=== PATIENT | male | born 1975 | race Caucasian/White ===

== ENCOUNTER → 2016-07-11 | Day surgery (SDC) | payer MEDICARE, MEDICAID ==
[~2016-07-11] VITALS: Ht 175.3 cm; Wt 98.0 kg
[~2016-07-11] MED LIST: AMLO10TA2 PO; CETACAINE SPRAY 20GM (FLOOR STOCK) As Ordered ONE; GLUCAGON FOR INJ 1 MG VIAL (J1610) IV STA; IBUP600T26 PO; IBUP800T23 PO; LEVO150T7 PO; LIDOCAINE 2% INJ 100 MG/5 ML SDV (FOR ANES.) As Ordered ONE; LR 1,000 ML IV SCH; OMEP40CA2 PO; ONDANSETRON 4MG/2ML VIAL (J2405) As Ordered ONE; ONDANSETRON 4MG/2ML VIAL (J2405) IV PRN; PENI250T57 PO; PROPOFOL 200 MG/20 ML VIAL As Ordered ONE; ROCURONIUM BROMIDE 50 MG/5 ML VIAL As Ordered ONE; SUCCINYLCHOLINE 100 MG/5 ML SYRINGE (J0330) As Ordered ONE; fentaNYL 100 MCG/2 ML INJECTION (J3010) As Ordered ONE
[2016-07-11 21:08] VITALS: BP 174/88
--- NOTE | 2016-07-11 23:10 | HPE ---
DATE OF ADMISSION: 07/11/2016 CHIEF COMPLAINT: Food impaction. HISTORY OF PRESENT ILLNESS: The patient is a 41-year-old male who presents with complaint of having food stuck in his throat. He has had this three times in the past. Most recently was about a year and a half ago where he required esophagogastroduodenoscopy (EGD) to push the food into his stomach. He saw Dr. Estevez after that and he said as long as it did not happen again, they would not do anything but if it did happen again he would have to have dilation done. Over the past year and a half he has had a couple episodes where the food has gotten stuck, but has gone through on its own. He has not had any more imaging or procedures done since then. Currently he is on proton pump inhibitor (PPI) which does take care of his symptoms. He has no problems with acid reflux, heartburn. No problems with swallowing liquids and normally does not have any problems with solids either. This afternoon his friend brought him a sub from [facility]. Shortly after eating he felt some fullness in his stomach and he tried passing it down by drinking some Dr. Gilbert. He vomited a couple of times, brought up a little bit of food but he is still unable to hold any liquids down. PAST MEDICAL HISTORY: Thyroid disease. History of lymphoma. Hypertension. PAST SURGICAL HISTORY: Splenectomy . Bone marrow biopsy. Para and total thyroidectomy. Lymph node dissections. SOCIAL HISTORY: Denies drug, alcohol, tobacco abuse. FAMILY HISTORY: Noncontributory. ALLERGIES: None. HOME MEDICATIONS: Please see medical records. REVIEW OF SYSTEMS: Per positives and negatives as stated in HPI. PHYSICAL EXAMINATION: General: A and O times three. In no acute distress. Vital signs: Temperature 97.6, pulse 88, respirations 18, blood pressure 174/105, pulse oximetry 99% on room air. HEENT: Pupils equal round, react to light and accommodation. Heart: S1, S2, regular rate and rn. Lungs: Clear to auscultation bilaterally. Abdomen: Soft, nontender, nondistended. Bowel sounds positive. Extremities: No clubbing, cyanosis or edema. LABS: None were obtained. IMAGING STUDIES: None were obtained. ASSESSMENT/PLAN: The patient is a 41-year-old male with likely food stuck in his throat. Recommendations to proceed with EGD with removal of food bolus or other foreign bodies. The risks and benefits of the procedure not limited but including bleeding, infection and perforation were discussed in detail with the patient. Informed was obtained and the procedure was planned. Postoperatively he will be discharged home and can followup with the Dr. Estevez in the office to discuss balloon dilation in the near future.
--- NOTE | 2016-07-12 10:50 | RO ---
DATE OF PROCEDURE: 07/14/2016 PREOPERATIVE DIAGNOSIS: Esophageal food impaction, possible foreign body. POSTOPERATIVE DIAGNOSIS: Esophageal food impaction, possible foreign body. FINDINGS: Distal esophagitis. No retained food. PROCEDURE: EGD, diagnostic. SURGEON: Dr. Jaciel Diaz. GROCERY STOCKER: ESTIMATED BLOOD LOSS: None. COMPLICATIONS: None. ANESTHESIA: General. INDICATIONS FOR PROCEDURE: The patient is a 41-year-old male with a history of food stuck in his throat after eating a sub this afternoon. He was unable to pass it. He was having difficulty swallowing his spit in the ER. Recommendation was to proceed with EGD and removal of the food. Risks and benefits of the procedure not limited but including bleeding, infection and perforation were discussed in detail with patient and informed consent was obtained and procedure was planned. PROCEDURE: The patient was brought back to operating room two. After sufficient sedation, the patient was placed in left lateral decubitus position. Next, time-out was done to confirm proper patient and proper procedure. Following that, a gastroscope was passed through the esophagus into the stomach. There is no obstruction along the way. There is slight narrowing at the distal esophagus with some inflammation. No visible bleeding. No visible food. Scope was then passed easily through the stomach into the duodenum. The first portion of the duodenal bulb, there was a large piece of lettuce that may have been what was causing the problems. Other than that, there was no sign of any other foreign material. Scope was then slowly removed and the patient with awakened from anesthesia and sent to postanesthesia care unit in stable condition.
== END | disposition home or self-care (01) ==
LOC: M ED 16:27 → M SDC 18:00
PROVIDERS: ATTEND Surgery
DX: T17.328A Food in larynx causing other injury, initial encounter (principal); I10 Essential (primary) hypertension; Z85.79 Personal history of other malignant neoplasms of lymphoid, hematopoietic and related tissues; E03.9 Hypothyroidism, unspecified; Z79.899 Other long term (current) drug therapy; Y92.89 Other specified places as the place of occurrence of the external cause
CPT/HCPCS: 43235; 99284; J0330; J1610; J2405; J3010

== ENCOUNTER → 2017-02-21 | Outpatient (CLI) | payer MEDICARE, MEDICAID ==
[~2017-02-21] MED LIST changes: -CETACAINE SPRAY 20GM (FLOOR STOCK) As Ordered ONE; -GLUCAGON FOR INJ 1 MG VIAL (J1610) IV STA; +IBUP-1022 PO; +IBUP1TAB7 PO; -IBUP600T26 PO; -IBUP800T23 PO; -LIDOCAINE 2% INJ 100 MG/5 ML SDV (FOR ANES.) As Ordered ONE; -LR 1,000 ML IV SCH; +METHACHOLINE KIT (J7674) INH ONE; -ONDANSETRON 4MG/2ML VIAL (J2405) As Ordered ONE; -ONDANSETRON 4MG/2ML VIAL (J2405) IV PRN; -PROPOFOL 200 MG/20 ML VIAL As Ordered ONE; -ROCURONIUM BROMIDE 50 MG/5 ML VIAL As Ordered ONE; -SUCCINYLCHOLINE 100 MG/5 ML SYRINGE (J0330) As Ordered ONE; -fentaNYL 100 MCG/2 ML INJECTION (J3010) As Ordered ONE
--- NOTE | 2017-02-21 14:36 | PFTRPT ---
Tech: Annetta RICE RRT Age: 41 Sex: Male Race: Height: 68.00 Inches Weight: 216.00 Lbs BSA: 2.11 Diagnosis: R06.09 METHACHOLINE CHALLENGE REPORT ORDERING PROVIDER: PHANI Sutton DATE OF SERVICE: 02/21/17 INTERPRETATION: The study was of excellent technical quality. Under protocol, methacholine was administered. At a dose of 25 mg (188.875 CDUs), a 21% decline in the FEV1 was noted. A PC20 of 18.40 does not meet criteria for a positive study. Flow rates returned to baseline post bronchodilator administration. IMPRESSION: Non-diagnostic study. Please correlate clinically. MTDD
--- NOTE | 2017-02-21 14:37 | PFTRPT ---
Tech: Annetta RICE RRT Age: 41 Sex: Male Race: Height: 68.00 Inches Weight: 216.00 Lbs BSA: 2.11 Diagnosis: R06.09 PULMONARY FUNCTION TESTING ORDERING PROVIDER: PHANI Sutton DATE OF SERVICE: 02/21/17 SPIROMETRY: Excellent technical quality. The forced vital capacity is reduced. The flow volume loop is in proportion. The obstructive index is, therefore, normal. FLOW VOLUME LOOP: The expiratory limb of the flow volume loop does suggest flow rate limitation. LUNG VOLUMES: The total lung capacity is reduced. The residual volume is in proportion. DIFFUSION CAPACITY: The diffusion capacity is mildly reduced, but is appropriate for alveolar volume. HEMOGLOBIN: No hemoglobin is available for correction. AIRWAY MECHANICS: Airway resistance and conductance are normal. IMPRESSION: At least mild obstructive ventilatory impairment. Please correlate clinically. MTDD
== END ==
LOC: M CARPUL 13:04
PROVIDERS: ATTEND Nurse Practitioner Adult Health
DX: R06.09 Other forms of dyspnea (principal)
CPT/HCPCS: 94010; 94070; 94726; 94729; 95070; J7674

== ENCOUNTER → 2017-04-17 | Outpatient (CLI) | payer MEDICARE, MEDICAID ==
[~2017-04-17] MED LIST changes: -METHACHOLINE KIT (J7674) INH ONE
[2017-04-17 15:04] LABS: ANION GAP 10 MEQ/L (8-16); BLOOD UREA NITROGEN 16 MG/DL (7-18); CALCIUM LEVEL 8.4 MG/DL (8.5-10.1); CARBON DIOXIDE LEVEL 26 MEQ/L (21-32); CHLORIDE LEVEL 108 MEQ/L (98-107); CREATININE FOR GFR 1.06 MG/DL (0.70-1.30); GLOMERULAR FILTRATION RATE > 60.0 (>60); GLUCOSE, FASTING 103 MG/DL (70-105); SODIUM LEVEL 144 MEQ/L (136-145)
== END ==
LOC: M LAB 13:45
PROVIDERS: ATTEND Nurse Practitioner Adult Health
DX: E03.9 Hypothyroidism, unspecified (principal); I10 Essential (primary) hypertension

== ENCOUNTER → 2017-04-26 | Outpatient (CLI) | payer MEDICARE, MEDICAID | LOC: M CARPUL 10:04 | DX: R01.1 Cardiac murmur, unspecified (principal) | CPT/HCPCS: 93306 ==

== ENCOUNTER 2017-10-01 23:36 | Emergency (ER) | payer MEDICARE, MEDICAID ==
[2017-10-02 00:21] LABS: BASO # 0.1 10^3/uL (0.0-0.2); BASO % 0.9 % (0.0-1.0); EOS # 0.2 10^3/uL (0.0-0.50); EOS % 1.9 % (0.0-3.0); HEMATOCRIT 42.1 % (42.0-52.0); HEMOGLOBIN 14.6 g/dl (13.5-17.5); IMMATURE GRANULOCYTE % 0.9 % (0-3.0); LYMPH # 3.5 10^3/uL (1.5-4.5); LYMPH % 33.5 % (24.0-44.0); MEAN CORPUSCULAR HEMOGLOBIN 30.7 pg (27.0-33.0); MEAN CORPUSCULAR HGB CONC 34.7 g/dl (32.0-36.5); MEAN CORPUSCULAR VOLUME 88.6 fl (80.0-96.0); MONO # 0.8 10^3/uL (0.0-0.8); MONO % 7.6 % (0.0-5.0); NEUTROPHILS # 5.7 10^3/uL (1.8-7.7); NEUTROPHILS % 55.2 % (36.0-66.0); PLATELET COUNT, AUTOMATED 432 10^3/uL (150-450); RED BLOOD COUNT 4.75 10^6/uL (4.30-6.10); WHITE BLOOD COUNT 10.3 10^3/uL (4.0-10.0)
[2017-10-02 00:52] LABS: ANION GAP 12 MEQ/L (8-16); BLOOD UREA NITROGEN 20 MG/DL (7-18); CALCIUM LEVEL 8.5 MG/DL (8.5-10.1); CARBON DIOXIDE LEVEL 24 MEQ/L (21-32); CHLORIDE LEVEL 109 MEQ/L (98-107); CK-MB VALUE MASS < 1.0 NG/ML (<3.6); CPK CREATINE PHOSPHOKINASE 146 U/L (39-308); CREATININE FOR GFR 1.67 MG/DL (0.70-1.30); GLUCOSE, FASTING 147 MG/DL (70-100); MB/CK RELATIVE INDEX 0.68 (< OR =4); POTASSIUM SERUM 3.7 MEQ/L (3.5-5.1); SODIUM LEVEL 145 MEQ/L (136-145); TROPONIN I < 0.02 NG/ML (< 0.10)
== END 2017-10-02 02:22 | disposition home or self-care (01) ==
LOC: M ED 23:36
DX: R07.89 Other chest pain (principal); Y04.8XXA Assault by other bodily force, initial encounter; Y92.098 Other place in other non-institutional residence as the place of occurrence of the external cause; Z79.899 Other long term (current) drug therapy; Z79.2 Long term (current) use of antibiotics
CPT/HCPCS: 71046

== ENCOUNTER → 2017-10-11 | Outpatient (CLI) | payer MEDICARE, MEDICAID | LOC: M RAD 15:00 | DX: R07.89 Other chest pain (principal) | CPT/HCPCS: 71101 ==

== ENCOUNTER → 2018-04-01 | Outpatient (REF) | payer MEDICARE, MEDICAID ==
[2018-04-01 20:18] LABS: GLUCOSE, FASTING 88 MG/DL (70-100)
[2018-04-01 20:19] LABS: ALBUMIN/GLOBULIN RATIO 1.33 (1.00-1.93); ALKALINE PHOSPHATASE 98 U/L (45-117); ALT/SGPT 39 U/L (12-78); ANION GAP 8 MEQ/L (8-16); AST/SGOT 25 U/L (7-37); BILIRUBIN,TOTAL 0.7 MG/DL (0.2-1.0); BLOOD UREA NITROGEN 15 MG/DL (7-18); CALCIUM LEVEL 8.4 MG/DL (8.5-10.1); CARBON DIOXIDE LEVEL 28 MEQ/L (21-32); CHLORIDE LEVEL 107 MEQ/L (98-107); GLOMERULAR FILTRATION RATE > 60.0 (>60); POTASSIUM SERUM 4.7 MEQ/L (3.5-5.1); SODIUM LEVEL 143 MEQ/L (136-145)
== END ==
LOC: M SFHCPLAZ 16:08
DX: E03.9 Hypothyroidism, unspecified (principal); I10 Essential (primary) hypertension; Z23 Encounter for immunization
CPT/HCPCS: 84443

== ENCOUNTER 2018-10-01 14:27 | Day surgery (SDC) | payer MEDICARE, MEDICAID ==
[~2018-10-01] VITALS: Ht 172.7 cm; Wt 101.8 kg
[~2018-10-01 14:27] MED LIST changes: -AMLO10TA2 PO; +AMLO10TA5 PO
[2018-10-01] MEDS ORDERED: LISI10TA4 PO (14:37)
[2018-10-01] MEDS ORDERED: PERCOCET 5MG/325MG TAB PO ONE (15:45)
[2018-10-01 16:38] LABS: HEMATOCRIT 44.3 % (42.0-52.0); HEMOGLOBIN 14.9 g/dl (13.5-17.5); MEAN CORPUSCULAR HEMOGLOBIN 30.8 pg (27.0-33.0); MEAN CORPUSCULAR HGB CONC 33.6 g/dl (32.0-36.5); MEAN CORPUSCULAR VOLUME 91.7 fl (80.0-96.0); PLATELET COUNT, AUTOMATED 375 10^3/uL (150-450); RED BLOOD COUNT 4.83 10^6/uL (4.30-6.10); WHITE BLOOD COUNT 13.3 10^3/uL (4.0-10.0)
[2018-10-01] MEDS ORDERED: LEVO175T2 PO (16:46)
[2018-10-01] MEDS ORDERED: LISI-538 PO (16:46)
[2018-10-01 16:52] LABS: BLOOD UREA NITROGEN 12 MG/DL (7-18); CALCIUM LEVEL 8.3 MG/DL (8.5-10.1); CARBON DIOXIDE LEVEL 27 MEQ/L (21-32); CHLORIDE LEVEL 107 MEQ/L (98-107); CREATININE FOR GFR 1.11 MG/DL (0.70-1.30); GLOMERULAR FILTRATION RATE > 60.0 (>60); GLUCOSE, FASTING 107 MG/DL (70-100); POTASSIUM SERUM 4.3 MEQ/L (3.5-5.1); SODIUM LEVEL 143 MEQ/L (136-145)
[2018-10-01 16:53] LABS: INR 0.88
--- NOTE | 2018-10-01 17:46 | CR ---
DATE OF CONSULTATION: 10/01/2018 CONSULTING HEALTHCARE PROVIDER: Milind Melara REASON FOR CONSULTATION: Suspected penile fracture. HISTORY: Mr. Bolden is a 43-year-old man with a past history of Hodgkin's lymphoma, for which he had radiation therapy and chemotherapy and is now disabled, who awoke with an erection today about midday. During masturbation he felt a sudden pop and curvature of the penis suddenly to the right. This was associated with pain on the right side of the shaft of his penis proximally. He had increasing pain and swelling thereafter and presented to the emergency room. He last ate about noon today, when he had some snack food and a drink. He had no hematuria. He voids only after coming to the emergency room, and urinalysis is clear. PAST MEDICAL HISTORY: Include Hodgkin's lymphoma, for which he underwent excision of a cervical lymph nod and a staging splenectomy. This was followed by chemotherapy and radiation treatment. He has also had problems with esophageal dysfunction and has had foreign bodies removed endoscopically on several occasions. His main medical problem is hypertension. He is currently on amlodipine and lisinopril. His other surgeries include thyroid surgery, for which he how takes levothyroxine. He is also on omeprazole. REVIEW OF SYSTEMS: Negative for seizure disorder, lateralizing neurologic complaints, numbness, or weakness. He denies cardiac chest pain, shortness of breath, dyspnea, productive cough, or throat pain. He has had no nausea or vomiting. He denies change in bowel function or hematochezia. He has not had previous problems with penile function or penile curvature. He denies peripheral neurologic issues or joint pain. He has had problems with swallowing dysfunction, requiring several foreign body extractions. The remainder of review of systems is negative. PHYSICAL EXAMINATION: Temperature 98.4, pulse 90, respirations 17, blood pressure 197/113. GENERAL: He is alert, awake, and oriented. NECK: Supple. He does have scars from prior surgeries. CHEST: Clear. CARDIAC: Regular rate and rhythm. ABDOMEN: Soft and nontender. There is no appreciable hernia. No organomegaly. No flank pain. He has a midline surgical scar that is well healed without hernia. GENITAL: Descended testes with a circumcised phallus that is grossly ecchymotic and swollen. There is tenderness in the proximal shaft. Rectal exam is not done. EXTREMITIES: Show no peripheral edema. Remainder of physical exam unremarkable. IMPRESSION: Penile fracture. PLAN: Flexible cystoscopy and penile exploration with repair of fracture if found. The risks of this, including infection, bleeding, penile curvature, loss of erections, scarring, and possible urethral stricture if urethral injury occurred were all discussed with the patient. He verbalized understanding and wished to proceed.
[2018-10-01] MEDS ORDERED: ceFAZolin 2 GM/D5W 50 ML IV BAG (J0690 PER 500MG) As Ordered ONE (18:33)
[2018-10-01] MEDS ORDERED: LIDOCAINE 1% SDV INJ 30 ML VIAL As Ordered ONE (18:39)
[2018-10-01] MEDS ORDERED: fentaNYL 100 MCG/2 ML INJECTION (J3010) As Ordered ONE (19:03)
[2018-10-01] MEDS ORDERED: LIDOCAINE 2% INJ 100 MG/5 ML SDV (FOR ANES.) As Ordered ONE (19:03)
[2018-10-01] MEDS ORDERED: MIDAZOLAM INJ 2 MG/2 ML VIAL (J2250) As Ordered ONE (19:03)
[2018-10-01] MEDS ORDERED: PROPOFOL 200 MG/20 ML VIAL As Ordered ONE (19:03)
[2018-10-01] MEDS ORDERED: SUCCINYLCHOLINE 100 MG/5 ML SYRINGE (J0330) As Ordered ONE (19:12)
[2018-10-01] MEDS ORDERED: ROCURONIUM BROMIDE 50 MG/5 ML VIAL As Ordered ONE (19:24)
[2018-10-01] MEDS ORDERED: dexameTHASONE 4 MG/ML 1ML VIAL (J1100) As Ordered ONE (19:24)
[2018-10-01] MEDS ORDERED: ONDANSETRON 4MG/2ML VIAL (J2405) As Ordered ONE (19:39)
[2018-10-01] MEDS ORDERED: KETOROLAC 60 MG/2 ML VIAL (J1885) As Ordered ONE (19:48)
[2018-10-01] MEDS ORDERED: ANEXSIA, NORCO 7.5MG/325MG TABLET(HYDROCODONE/APAP) PO PRN (20:30)
[2018-10-01] MEDS ORDERED: HYDR-4514 PO (20:40)
[2018-10-01] MEDS ORDERED: ONDANSETRON 4MG/2ML VIAL (J2405) IV PRN (20:45)
[2018-10-01] MEDS ORDERED: LR 1,000 ML IV SCH (20:45)
[2018-10-01] MEDS ORDERED: fentaNYL 100 MCG/2 ML INJECTION (J3010) IV PRN (20:45)
[2018-10-01] MEDS ORDERED: PERCOCET 5MG/325MG TAB PO PRN (20:45)
[2018-10-01] MEDS ORDERED: METOCLOPRAMIDE INJ 10MG/2ML VIAL (J2765) IV PRN (20:45)
[2018-10-01 22:10] VITALS: BP 180/97
--- NOTE | 2018-10-02 06:49 | RO ---
DATE OF PROCEDURE: 10/01/2018 PREOPERATIVE DIAGNOSIS: Penile fracture. POSTOPERATIVE DIAGNOSIS: Penile fracture. PROCEDURES PERFORMED: 1. Flexible cystoscopy. 2. Penile exploration with repair of penile fracture. SURGEON: Jimbo Wallace MD GLASSBLOWER: ANESTHESIA: General. INDICATION: This 43-year-old man developed sudden pain and swelling associated with a popping sound associated with sexual activity earlier today. He had immediate pain and presented to the emergency room where he was noted to have a swollen, ecchymotic phallus. The patient said at the time of injury the pain suddenly turned to the right. PROCEDURE: After obtaining informed consent, the patient was taken to the operating room where after induction of general anesthetic, he was prepped and draped in the usual manner. The 16 Kinyarwanda flexible cystoscope was advanced into the urethra. There was no evidence of mucosal injury in the urethra. We also examined the bladder. I noted the ureteral orifices in orthotopic position. There were no bladder mucosal abnormalities. The cystoscope was withdrawn. A circumcising incision was made just below the coronal sulcus and the penis was degloved. Old blood clot was noted in between the tissues as we approached the base of the right shaft, at which point we identified a break in the corporal body measuring about 2 cm and extending transversely. The clots were removed and after clearly identifying the edges all around, we closed the fracture with interrupted #2-0 Vicryl suture burying the knots. Four sutures were placed. A single layer of overlying tissue was placed. The wound was thoroughly irrigated and the wound closed with interrupted #4-0 chromic suture. A dorsal penile block with 10 mL of 1% lidocaine plain was placed. Sterile dressings were applied along with a Coban wrap. The patient was transferred to recovery in satisfactory condition where an ice pack was promptly placed. DISPOSITION: Dismissed home on [place] 7.5 one by mouth every 4 hours as needed for pain. Follow-up in three week. Bed rest, ice pack and dressing tonight. Tomorrow morning he may shower and remove dressing. He should not drive until he has been off pain medication for at least 8 hours.
[2018-10-02] MEDS ORDERED: TESS100C PO (07:15)
--- NOTE | 2018-10-02 08:02 | ECGEPIP ---
[facility] - ED Test Date: 2018-10-01 Pat Name: JOSE FRANCISCO VALDES Department: Room: - Gender: Male Braid Maker: sara : 1975 Requested By: SEBASTIEN HUANG Order Number: [id number] Reading MD: Mildred Watson Measurements Intervals [place] Rate: 65 P: 59 MI: 123 QRS: QRSD: 105 T: 28 QT: 407 QTc: 426 Interpretive Statements SINUS RHYTHM BORDERLINE LEFT AXIS DEVIATION POSSIBLE LEFT VENTRICULAR HYPERTROPHY NONSPECIFIC ST & T-WAVE ABNORMALITY ?DELTA WAVE DECREASED RATE 10/02/17 Electronically Signed on 10-02-2018 8:02:13 EDT by Mildred Watson
== END 2018-10-01 22:20 | disposition home or self-care (01) ==
LOC: M ED 14:27 → M SDC 16:45
PROVIDERS: ATTEND Urology
DX: S39.840A Fracture of corpus cavernosum penis, initial encounter (principal); Z85.72 Personal history of non-Hodgkin lymphomas; Z92.3 Personal history of irradiation; Z92.21 Personal history of antineoplastic chemotherapy; Y92.009 Unspecified place in unspecified non-institutional (private) residence as the place of occurrence of the external cause; Y93.9 Activity, unspecified
CPT/HCPCS: 52000; 54440; 80048; 81001; 85027; 85610; 93005; 99284; J0330; J0690; J1100; J1885; J2250; J2405; J3010

== ENCOUNTER 2018-10-02 07:06 | Emergency (ER) | payer MEDICARE, MEDICAID ==
[~2018-10-02] VITALS: Ht 172.7 cm; Wt 82.3 kg
[2018-10-02 07:06] VITALS: BP 133/80
[~2018-10-02 07:06] MED LIST changes: +HYDR-4514 PO; +LEVO175T2 PO; +LISI-538 PO; +LISI10TA4 PO
[2018-10-02] MEDS ORDERED: TESS100C PO (07:15)
== END 2018-10-02 07:49 | disposition home or self-care (01) ==
LOC: M ED 07:06
DX: Z48.89 Encounter for other specified surgical aftercare (principal); K21.9 Gastro-esophageal reflux disease without esophagitis

== ENCOUNTER 2018-10-07 01:19 | Emergency (ER) | payer MEDICARE, MEDICAID ==
[~2018-10-07] VITALS: Ht 172.7 cm; Wt 100.1 kg
[~2018-10-07 01:19] MED LIST changes: +TESS100C PO
[2018-10-07 01:20] VITALS: BP 169/101
[2018-10-07] MEDS ORDERED: HYDR-3716 (01:27)
== END 2018-10-07 02:32 | disposition home or self-care (01) ==
LOC: M ED 01:19
DX: Z48.89 Encounter for other specified surgical aftercare (principal); C85.90 Non-Hodgkin lymphoma, unspecified, unspecified site; Z79.899 Other long term (current) drug therapy; Z79.890 Hormone replacement therapy

== ENCOUNTER → 2018-10-08 | Outpatient (REF) | payer MEDICARE, MEDICAID ==
[~2018-10-08] MED LIST changes: +HYDR-3716
[2018-10-08 17:59] LABS: THYROID STIMULATING HORMONE 14.4 uIU/ML (0.358-3.740)
[2018-10-08 18:54] LABS: FREE T3 2.9 PG/ML (2.2-4.0); FREE T4 0.79 NG/DL (0.76-1.46)
== END ==
LOC: M SFHCPLAZ 16:03
PROVIDERS: ATTEND Nurse Practitioner Adult Health
DX: E03.9 Hypothyroidism, unspecified (principal)
CPT/HCPCS: 36415; 84439; 84443; 84481; G0463

== ENCOUNTER → 2019-01-02 | Outpatient (REF) | payer MEDICARE, MEDICAID | LOC: M SFHCPLAZ 15:43 | PROVIDERS: ATTEND Dermatology | DX: C44.519 Basal cell carcinoma of skin of other part of trunk (principal) ==

== ENCOUNTER → 2019-04-08 | Outpatient (REF) | payer MEDICARE, MEDICAID ==
[~2019-04-08] MED LIST changes: -OMEP40CA2 PO; +OMEP40CA97 PO
== END ==
LOC: M LAB REF 19:04
PROVIDERS: ATTEND Dermatology
DX: C44.519 Basal cell carcinoma of skin of other part of trunk (principal); D23.5 Other benign neoplasm of skin of trunk

== ENCOUNTER → 2019-04-09 | Outpatient (REF) | payer MEDICARE, MEDICAID | LOC: M SFHCPLAZ 13:47 | PROVIDERS: ATTEND Nurse Practitioner Adult Health | DX: I10 Essential (primary) hypertension (principal); E03.9 Hypothyroidism, unspecified; Z53.8 Procedure and treatment not carried out for other reasons ==

== ENCOUNTER → 2019-12-31 | Outpatient (REF) | payer MEDICARE, MEDICAID ==
[~2019-12-31] MED LIST changes: -AMLO10TA5 PO; +AMLO1TAB25 PO
== END ==
LOC: M LAB REF 14:00
PROVIDERS: ATTEND Dermatology
DX: C44.519 Basal cell carcinoma of skin of other part of trunk (principal)
CPT/HCPCS: 11102; 88305; G0463

== ENCOUNTER 2020-01-22 13:06 | Emergency (ER) | payer OTHER, MEDICARE, MEDICAID ==
[~2020-01-22] VITALS: Ht 172.7 cm; Wt 98.9 kg
[2020-01-22 14:42] VITALS: BP 176/102
[2020-01-22 14:43] VITALS: BP 176/102
[2020-01-22] MEDS ORDERED: lisinopriL 20 MG TAB PO ONE (14:45)
[2020-01-22] MEDS ORDERED: amLODIPine 10 MG TAB PO ONE (14:45)
== END 2020-01-22 15:17 | disposition home or self-care (01) ==
LOC: M ED 13:06
DX: Z04.1 Encounter for examination and observation following transport accident (principal); C85.90 Non-Hodgkin lymphoma, unspecified, unspecified site; Z79.899 Other long term (current) drug therapy

== ENCOUNTER → 2020-03-15 | Outpatient (REF) | payer MEDICARE | LOC: M LAB REF 17:08 | PROVIDERS: ATTEND Dermatology | DX: L90.5 Scar conditions and fibrosis of skin (principal) ==

== ENCOUNTER → 2020-07-28 | Outpatient (REF) | payer MEDICARE, MEDICAID ==
[~2020-07-28] MED LIST changes: -LISI-538 PO; +LISI10TA22 PO; -LISI10TA4 PO; +LISI20TA33 PO
[2020-07-28 17:47] LABS: HEMATOCRIT 45.5 % (42.0-52.0); HEMOGLOBIN 15.3 g/dl (13.5-17.5); MEAN CORPUSCULAR HEMOGLOBIN 30.6 pg (27.0-33.0); MEAN CORPUSCULAR HGB CONC 33.6 g/dl (32.0-36.5); PLATELET COUNT, AUTOMATED 404 10^3/uL (150-450); WHITE BLOOD COUNT 8.7 10^3/uL (4.0-10.0)
[2020-07-28 18:16] LABS: ALBUMIN 4.1 GM/DL (3.2-5.2); ALT/SGPT 50 U/L (12-78); BLOOD UREA NITROGEN 18 MG/DL (7-18); CALCIUM LEVEL 9.7 MG/DL (8.5-10.1); CARBON DIOXIDE LEVEL 31 MEQ/L (21-32); CHLORIDE LEVEL 105 MEQ/L (98-107); CHOLESTEROL LEVEL 252 MG/DL (<200); CHOLESTEROL RISK RATIO 5.478 (<5); CREATININE FOR GFR 1.05 MG/DL (0.70-1.30); GLOMERULAR FILTRATION RATE > 60.0 (>60); GLUCOSE, FASTING 111 MG/DL (70-100); HDL CHOLESTEROL 46 MG/DL (>40); LDL CHOLESTEROL 170 MG/DL (<100); NON-HDL-C 206 MG/DL; POTASSIUM SERUM 3.8 MEQ/L (3.5-5.1); SODIUM LEVEL 141 MEQ/L (136-145); TOTAL PROTEIN 7.2 GM/DL (6.4-8.2); TRIGLYCERIDES LEVEL 178 MG/DL (<150)
== END ==
LOC: M SFHCPLAZ 14:53
PROVIDERS: ATTEND Nurse Practitioner Adult Health
DX: E03.9 Hypothyroidism, unspecified (principal); I10 Essential (primary) hypertension; Z86.79 Personal history of other diseases of the circulatory system
CPT/HCPCS: 36415; 80053; 80061; 84443; 85027; G0463

== ENCOUNTER → 2021-02-04 | Outpatient (CLI) | payer MEDICARE, MEDICAID ==
[~2021-02-04] MED LIST changes: +OMEP40CA4 PO; -OMEP40CA97 PO
--- NOTE | 2021-02-04 14:32 | REP ---
INDICATION: TESTICULAR NODULE COMPARISON: None. TECHNIQUE: Bae scale and color Doppler evaluation using linear and curved array transducer with color Doppler evaluation. FINDINGS: The testicles and epididymi are relatively normal in contour, size, echogenicity, vascularity and overall appearance. Few small bilateral epididymal cysts measure 3 mm on the right and up to 6 mm on the left. There is no evidence for intratesticular mass lesion, infectious/inflammatory process, or torsion. No significant hydroceles. Patient's palpable mass corresponds to mildly prominent but normal appearing left spermatic cord. No obvious mass lesion or further abnormality noted.. Right testicle measures 3.4 x 1.4 x 1.9 cm. Left testicle measures 3.4 x 1.7 x 2.4 cm. IMPRESSION: Essentially normal scrotal ultrasound. Palpable mass corresponds to mildly prominent but normal appearing left spermatic cord. <Electronically signed by Amauri Marcos > 02/04/21 [id number]
== END ==
LOC: M RAD 13:36
PROVIDERS: ATTEND Nurse Practitioner Adult Health
DX: N50.89 Other specified disorders of the male genital organs (principal)

== ENCOUNTER 2021-03-16 08:40 | Emergency (ER) | payer MEDICARE, MEDICAID ==
[~2021-03-16] VITALS: Ht 170.2 cm; Wt 104.5 kg
[2021-03-16] MEDS ORDERED: LEVOTAB10 (09:18)
[2021-03-16] MEDS ORDERED: EUTH200T (09:18)
--- OUTSIDE RECORDS SUMMARY | 2021-03-16 09:23 | CCD ---
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 Active confirmed 992990659 Problem Schatzki's ring K22.2 Active confirmed 2356 82195 Problem Hypothyroid E03.9 Active confirmed 58527599 Problem History of nonmelanoma skin cancer Z85.828 Activ e confirmed 617057988 Problem History of non-Hodgkin's lymphoma Z85.72 Active confirmed 136791182 Problem Hypertension I10 Active confirmed 4237498 3 Problem GERD (gastroesophageal reflux disease) K21.9 A ctive confirmed 536303056 Problem Hx of splenectomy Z90.81 Active confirmed 16 1787622 Problem Frontal sinusitis, unspecified chronicity J32.1 Active confirmed 42661474 Problem Essential hypertension I10 Active confirmed 57177155 Problem Allergic rhinitis, unspecified seasonality, unspecifie d trigger J30.9 Active confirmed 47657313 ALLERGIES Allergen (clinical drug ingredient) Drug/Non Drug Allergy do cumented on EMR Reaction Allergy Type Onset Date Status doxycycline Doxycycline([facility] Code:[address]-06) Taste Drug Aller gy Active ENCOUNTERS from 1975 to 2021-03-02 Encounter Location Date Provider Diagnosis [address] [phone] [place] [id number] Feb, Liseth Collazo IMMUNIZATIONS Vaccine Route Administration Date Status Meningococcal B 0.5mL Trumenba IM Intramuscular May 17, 2017 Administered Meningococcal 0.5mL Menveo Groups A,C,Y & W-135 IM Intramuscular Mar 19, 2017 Administered Meningococcal B 0.5mL Trumenba IM Intramuscular Mar 28, 2017 Administered Pneumococcal Adult 0.5mL Pneumovax 23 IM Intramuscular May 17 018 Administered TDAP 0.5mL (Boostrix) IM Intramuscular Mar 28, 2017 Administe red Pneumococcal 0.5mL Prevnar 13 IM Intramuscular Mar 19, 2017 A dministered Influenza 6mo & up Fluzone IM Intramuscular Apr 01, 2018 Admi nistered Influenza 6mo & up Fluzone IM Intramuscular Feb 06, 2017 Admi nistered SOCIAL HISTORY Tobacco Use: Social History Observation Description Date Details (start date - stop date) Never Smoker Sex Assigned At : Social History Observation Description Sex Assigned At Unknown Education: Question Answer Notes Level of Education: high school grad,[employer], [employer] course at home 4 years did everything submitted never gave him final paper work computer repairs and diagnostic Audit Question Answer Notes Total Score: 0 Interpretation: Alcohol Education Language: Question Answer Notes Languages spoken: Danish Mandaeism: Question Answer Notes Mandaeism 33 None Sexual Hx: Question Answer Notes Had sex in the last 12 months (vaginal, oral, or anal)? Yes with Women only Use protection? Yes How often? All of the time Drug and Alcohol Question Answer Notes Total Score: 0 Interpretation: No problems reported Alcohol Screening: Question Answer Notes Did you have a drink containing alcohol in the past year? Ye s Points 1 Interpretation Negative How often did you have six or more drinks on one occas ion in the past year? Never (0 points) How many drinks did you have on a typica l day when you were drinking in the past year? 1 or 2 (0 points) How often did you have a drink containing alcohol in t he past year? Monthly or less (1 point) Tobacco Use: Question Answer Notes Are you a: never smoker REASON FOR REFERRAL No Information VITAL SIGNS No information MEDICATIONS Medication SIG (Take, Route, Frequency, Duration) Notes Start Da te End Date Status Levocetirizine Dihydrochloride 5 MG 1 tablet in the ev ening Orally Once a day for 30 Active Penicillin V Potassium 250MG TAKE ONE TABLET BY MOUTH TWICE DAILY as needed per patient Active amLODIPine Besylate 10 MG 1 tablet Orally Once a day for 30 days Active Omeprazole 40 MG 1 capsule Orally Once a day for 30 days Active Lisinopril 20 MG Take 1 tablet by mouth once daily for 90 days Active Advair Diskus 250-50 MCG/DOSE 1 puff Inhalation Twice a day for 30 days Oct, Active Levothyroxine Sodium 200 MCG 1 tablet on an empty stom ach in the morning Orally Once a day for 30 day(s) Sep, Active PROCEDURES No Information RESULTS No Results REASON FOR VISIT refill MEDICAL (GENERAL) HISTORY Type Description Date Medical History Non-hodgkins lymphoma- tx at age 13- in remission [facility] Medical History HTN Medical History Hypothyroidism--surgical induced Medical History 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[place]) Medical History daily antibiotics for carolin us years per patient due to splenectomy Medical History 12/13/2014, hiatus hernia, moderate Scha tzki''s ring acquired Medical History 02/21/2017, pulmonary functi on test, airway resistance and conductance are normal, at least mild obstructive ventilatory impairment, methacholine challenge negative Medical History 04/27/17 Echocardiogram LVEF 65-70% Medical History Plantar wart Medical History Basal cell carcinoma of upper back Surgical History Parathyroidectomy approx 1988 Surgical History Spleenectomy--[facility] 1988 Surgical History Right supraclavicular lymph node biopsy Surgical History EGD -[facility] 12/13/2014 Surgical History EDG with balloon dilatation for dysphagi a 03/22/2015 Surgical History EDG possible foreign body, no retained f ood distal esophagitis 07/11/2016 Surgical History Penile exploration with repair of penile fracture- Dr. Wallace 10/01/2018 Surgical History [facility] Hospitalization History Surgical per above Goals Section No Information Health Concerns No Information MEDICAL EQUIPMENT No Information MENTAL STATUS No Information FUNCTIONAL STATUS No Information ASSESSMENTS No Information PLAN OF TREATMENT Medication Medication Name Sig Start Date Stop Date Omeprazole 40 MG 1 capsule Orally Once a day for 30 days Lisinopril 20 MG Take 1 tablet by mouth once daily for 90 days amLODIPine Besylate 10 MG 1 tablet Orally Once a day for 30 days Next Appt Details Provider Name:Qi Morton, 2021-07-05 03:00:00 PM, [address] [place] [address], , [place], [address], Provider Name:Liseth Collazo, 01:30:00 PM, [address] [facility], , [place], [address], Insurance Providers Payer Name Payer Address Payer Phone Insured Name Patient Relati onship to Insured Coverage Start Date Coverage End Date MEDICAID [employer] [address] [facility] [id number] JOSE FRANCISCO VALDES self [facility] [address] [facility] [phone] JOSE FRANCISCO VALDES self
--- OUTSIDE RECORDS SUMMARY | 2021-03-16 09:23 | CCD ---
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 Name Role Phone Qi Morton Unavailable PROBLEMS Type Condition ICD9-CM Code ELZ95-QO Code Onset Dates Condition S tatus W/U Status Risk SNOMED Code Notes Problem History of non-Hodgkin's lymphoma Z85.72 Active confirmed 436529096 Problem Hiatal hernia K44.9 Active confirmed 791803 09 Problem History of Zwojk-Jbsvrqwfs-Kpqul (WPW) syndrome Z8 6.79 Active confirmed 467476863 Problem Allergic rhinitis, unspecified seasonality, unspecifie d trigger J30.9 Active confirmed 58201302 Problem GERD (gastroesophageal reflux disease) K21.9 A ctive confirmed 628110033 Problem History of nonmelanoma skin cancer Z85.828 Activ e confirmed 399423522 Problem Hypothyroid E03.9 Active confirmed 90009922 Problem Schatzki's ring K22.2 Active confirmed 2356 17452 Problem Hx of splenectomy Z90.81 Active confirmed 16 8896835 Problem Frontal sinusitis, unspecified chronicity J32.1 Active confirmed 35748750 Problem Essential hypertension I10 Active confirmed 04466173 ALLERGIES Allergen (clinical drug ingredient) Drug/Non Drug Allergy do cumented on EMR Reaction Allergy Type Onset Date Status doxycycline Doxycycline([facility] Code:[address]-31) Taste Drug Aller gy Active ENCOUNTERS from 1974 to 2020-12-22 Encounter Location Date Provider Diagnosis [facility] [address] [phone] [place] [address] Nov, Qi Morton Encounter for screening for malignant neoplasm of skin Z12.83 ; Skin tags, multiple acquired L91.8 ; Multiple benign nevi D22.9 and History of nonmelanoma skin cancer Z85.828 IMMUNIZATIONS Vaccine Route Administration Date Status Meningococcal 0.5mL Menveo Groups A,C,Y & W-135 IM Intramuscular Mar 19, 2017 Administered Meningococcal B 0.5mL Trumenba IM Intramuscular May 17, 2017 Administered Meningococcal B 0.5mL Trumenba IM [...] Answer Notes Level of Education: high school grad,[place], College PCDI course at home 4 years did everything submitted never gave him final paper work computer repairs and diagnostic Audit Question Answer Notes Total Score: 0 Interpretation: Alcohol Education Language: Question Answer Notes Languages spoken: Uruguayan Bahai: Question Answer Notes Bahai 33 None Sexual Hx: Question Answer Notes [...] REASON FOR REFERRAL No Information VITAL SIGNS Weight 225.0 lbs Nov, Height 5'7.5" in Nov, BMI 34.72 kg/m2 Nov, Blood pressure systolic 142 mm Hg Nov, Blood pressure diastolic 86 mm Hg Nov, MEDICATIONS Medication SIG (Take, Route, Frequency, Duration) Notes Start Da te End Date Status Levocetirizine Dihydrochloride 5 MG 1 tablet in the ev ening Orally Once a day for 30 Active Azelastine HCl 137 MCG/SPRAY 1 puff in each nostril Na april Twice a day for 30 day(s) Mar, Not-Taking Advair Diskus 250-50 MCG/DOSE 1 puff Inhalation Twice a day for 30 days Oct, Active Omeprazole 40 MG 1 capsule Orally Once a day for 30 Active Penicillin V Potassium 250MG TAKE ONE TABLET BY MOUTH TWICE DAILY as needed per patient Active amLODIPine Besylate 10 MG 1 tablet Orally Once a day for 30 Active Ciprodex 0.3-0.1 % 4 drops into both ears Otic Twice a day for 7 day(s) Jun, Not-Taking Lisinopril 20 MG 1 tablet Orally Once a day for 30 Active Levothyroxine Sodium 200 MCG 1 tablet on an empty stom ach in the morning Orally Once a day for 30 day(s) Sep, Active PROCEDURES No Information RESULTS No Results REASON FOR VISIT FBSE Hx of [facility] MEDICAL (GENERAL) HISTORY Type Description Date Medical History Non-hodgkins lymphoma- tx at age 13- in remission [facility] Medical History HTN Medical History Hypothyroidism--surgical induced Medical History 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[place]) Medical History daily antibiotics for carolin us [...] Surgical History Parathyroidectomy approx 1988 Surgical History Spleenectomy--[facility] appro 1988 Surgical History Right supraclavicular lymph node biopsy Surgical History EGD -[facility] 12/13/2014 Surgical History EDG with balloon dilatation [...] No Information FUNCTIONAL STATUS No Information ASSESSMENTS Encounter Date Diagnosis Assessment Notes Treatment Notes Treatm ent Clinical Notes Nov, Encounter for screening for malignant neoplasm of skin (ICD-10 - Z12.83) Patient counseled on signs and symptoms of skin cancer including ABCDE's of Melanoma. Patient counseled to wear sunscreen or use sun protective clothing when outdoors. Avoid peak hours of sun between 10-2. Patient instructed to call with any new or changing lesions. Nov, Skin tags, multiple acquired (ICD-10 - L91.8) Benign, reassurance Nov, Multiple benign nevi (ICD-10 - D22.9) Reminded to avoid the sun and tanning, use sun screens regularly when spending time [id number], and perform self-examinations monthly to watch for any change in the appearance of your moles. If you notice any changes in color, appearance, symptoms of moles, you should contact the office for an appointment to have change evaluated as soon as possible. Nov, History of nonmelanoma skin cancer (ICD-10 - Z85 .828) NER PLAN OF TREATMENT Treatment Notes Assessment Notes Clinical Notes Encounter for screening for malignant neoplasm of skin Patient counseled on signs and symptoms of skin cancer including ABCDE's of Melanoma. Patient counseled to wear sunscreen or use sun protective clothing when outdoors. Avoid peak hours of sun between 10-2. Patient instructed to call with any new or changing lesions. Skin tags, multiple acquired Benign, reassurance Multiple benign nevi Reminded to avoid the sun an d tanning, use sun screens regularly when spending time [id number], and perform self-examinations monthly to watch for any change in the appearance of your moles. If you notice any changes in color, appearance, symptoms of moles, you should contact the office for an appointment to have change evaluated as soon as possible. History of nonmelanoma skin cancer NER Next Appt Details 6 Months Reason:FBSE Hx BCC Provider Name:Liseth Collazo, 03:30:00 PM, [address] [facility], [place], [address], Provider Name:Qi Morton, 2021-07-05 03:00:00 PM, [address], , [place], [address], Follow Up:6 MonthsFBSE [facility] Insurance Providers Payer Name Payer Address Payer Phone Insured Name Patient Relati onship to Insured Coverage Start Date Coverage End Date [facility] [id number] [facility] [address] JOSE FRANCISCO BOLDEN self [facility]ICAID [facility] [address] [facility] [id number] JOSE FRANCISCO BOLDEN self
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
[2021-03-16] MEDS ORDERED: LABETALOL 100MG/20ML VIAL IV STA ×2 (11:01→12:30)
[2021-03-16] MEDS ORDERED: BOOSTRIX/ADACEL VACCINE (DIPHTH/PERTUSS/ACELL/TETANUS) 0.5ML SYR IM ONE (11:35)
[2021-03-16 12:06] LABS: HEMATOCRIT 42.9 % (42.0-52.0); HEMOGLOBIN 14.7 g/dl (13.5-17.5); MEAN CORPUSCULAR HEMOGLOBIN 30.1 pg (27.0-33.0); MEAN CORPUSCULAR HGB CONC 34.3 g/dl (32.0-36.5); MEAN CORPUSCULAR VOLUME 87.7 fl (80.0-96.0); PLATELET COUNT, AUTOMATED 370 10^3/uL (150-450); RED BLOOD COUNT 4.89 10^6/uL (4.30-6.10); WHITE BLOOD COUNT 10.8 10^3/uL (4.0-10.0)
[2021-03-16 12:16] LABS: INR 0.89; PROTHROMBIN TIME 12.4 SECONDS (12.7-14.5)
[2021-03-16 12:24] VITALS: BP 166/87
[2021-03-16 12:29] LABS: ALBUMIN 3.9 GM/DL (3.2-5.2); ALT/SGPT 57 U/L (12-78); BLOOD UREA NITROGEN 14 MG/DL (7-18); CALCIUM LEVEL 8.7 MG/DL (8.5-10.1); CARBON DIOXIDE LEVEL 28 MEQ/L (21-32); CHLORIDE LEVEL 105 MEQ/L (98-107); CREATININE FOR GFR 1.16 MG/DL (0.70-1.30); GLOMERULAR FILTRATION RATE > 60.0 (>60); GLUCOSE, FASTING 117 MG/DL (70-100); POTASSIUM SERUM 3.5 MEQ/L (3.5-5.1); SODIUM LEVEL 140 MEQ/L (136-145); TOTAL PROTEIN 7.5 GM/DL (6.4-8.2)
[2021-03-16 12:32] VITALS: BP 195/111
[2021-03-16 12:36] LABS: RSV AMPLIFICATION NEGATIVE (NEGATIVE)
== END 2021-03-16 12:25 | disposition short-term general hospital (02) ==
LOC: M ED 08:40 → EDBD 08:40 → M ED 12:25
DX: S06.320A Contusion and laceration of left cerebrum without loss of consciousness, initial encounter (principal); Y04.8XXA Assault by other bodily force, initial encounter; Y92.009 Unspecified place in unspecified non-institutional (private) residence as the place of occurrence of the external cause; Y93.9 Activity, unspecified; Y99.9 Unspecified external cause status; I10 Essential (primary) hypertension; C85.90 Non-Hodgkin lymphoma, unspecified, unspecified site; E03.9 Hypothyroidism, unspecified; F17.200 Nicotine dependence, unspecified, uncomplicated; Z79.899 Other long term (current) drug therapy

== ENCOUNTER → 2021-08-02 | Outpatient (CLI) | payer MEDICARE, MEDICAID ==
[~2021-08-02] MED LIST changes: +EUTH200T; +LEVOTAB10
[2021-08-02 18:30] LABS: ALBUMIN 4.1 GM/DL (3.2-5.2); ALT/SGPT 82 U/L (12-78); BILIRUBIN,TOTAL 0.5 MG/DL (0.2-1.0); BLOOD UREA NITROGEN 17 MG/DL (7-18); CALCIUM LEVEL 9.2 MG/DL (8.5-10.1); CARBON DIOXIDE LEVEL 32 MEQ/L (21-32); CHLORIDE LEVEL 107 MEQ/L (98-107); CREATININE FOR GFR 1.24 MG/DL (0.70-1.30); GLOMERULAR FILTRATION RATE > 60.0 (>60); GLUCOSE, FASTING 94 MG/DL (70-100); POTASSIUM SERUM 4.7 MEQ/L (3.5-5.1); SODIUM LEVEL 143 MEQ/L (136-145); TOTAL PROTEIN 7.4 GM/DL (6.4-8.2)
== END ==
LOC: M PLAIMG 14:45
PROVIDERS: ATTEND Nurse Practitioner Adult Health
DX: M54.50 Low back pain, unspecified (principal); I10 Essential (primary) hypertension; E03.9 Hypothyroidism, unspecified

== ENCOUNTER → 2021-08-10 | Outpatient (CLI) | payer MEDICARE, MEDICAID | LOC: M CARPUL 12:57 | PROVIDERS: ATTEND Nurse Practitioner Adult Health | DX: J44.9 Chronic obstructive pulmonary disease, unspecified (principal) ==

== ENCOUNTER → 2021-08-17 | Outpatient (CLI) | payer MEDICARE, MEDICAID ==
[~2021-08-17] MED LIST changes: +METHACHOLINE KIT (J7674) INH ONE
== END ==
LOC: M CARPUL 13:30
PROVIDERS: ATTEND Nurse Practitioner Adult Health
DX: J44.9 Chronic obstructive pulmonary disease, unspecified (principal)
CPT/HCPCS: 94070; 95070; J7674

== ENCOUNTER → 2021-12-06 | Outpatient (CLI) | payer MEDICARE, MEDICAID ==
[~2021-12-06] MED LIST changes: -METHACHOLINE KIT (J7674) INH ONE
== END ==
LOC: M PLAIMG 09:15 → M PLALAB 09:15
PROVIDERS: ATTEND Nurse Practitioner Adult Health
DX: M54.6 Pain in thoracic spine (principal)

== ENCOUNTER → 2022-01-31 | Outpatient (CLI) | payer MEDICARE, MEDICAID ==
[2022-01-31 18:30] LABS: ALBUMIN 3.9 GM/DL (3.2-5.2); ALT/SGPT 76 U/L (12-78); BILIRUBIN,TOTAL 0.8 MG/DL (0.2-1.0); BLOOD UREA NITROGEN 10 MG/DL (7-18); CALCIUM LEVEL 8.7 MG/DL (8.5-10.1); CARBON DIOXIDE LEVEL 30 MEQ/L (21-32); CHLORIDE LEVEL 104 MEQ/L (98-107); CREATININE FOR GFR 1.11 MG/DL (0.70-1.30); GLOMERULAR FILTRATION RATE > 60.0 (>60); GLUCOSE, FASTING 114 MG/DL (70-100); POTASSIUM SERUM 3.8 MEQ/L (3.5-5.1); SODIUM LEVEL 140 MEQ/L (136-145); TOTAL PROTEIN 7.1 GM/DL (6.4-8.2)
== END ==
LOC: M PLALAB 14:42
PROVIDERS: ATTEND Nurse Practitioner Adult Health
DX: E03.9 Hypothyroidism, unspecified (principal); I10 Essential (primary) hypertension

== ENCOUNTER → 2022-02-22 | Outpatient (CLI) | payer MEDICARE, MEDICAID | LOC: M RAD 08:33 | PROVIDERS: ATTEND Nurse Practitioner Adult Health | DX: R74.01 Elevation of levels of liver transaminase levels (principal) ==

== ENCOUNTER → 2022-08-10 | Outpatient (CLI) | payer MEDICARE, MEDICAID ==
[2022-08-10 18:23] LABS: HEMOGLOBIN 14.8 g/dl (13.5-17.5); MEAN CORPUSCULAR HGB CONC 32.2 g/dl (32.0-36.5); MEAN CORPUSCULAR VOLUME 93.1 fl (80.0-96.0); PLATELET COUNT, AUTOMATED 415 10^3/uL (150-450); RED BLOOD COUNT 4.94 10^6/uL (4.30-6.10); WHITE BLOOD COUNT 8.8 10^3/uL (4.0-10.0)
[2022-08-10 18:57] LABS: ALBUMIN 3.9 G/DL (3.2-5.2); ALKALINE PHOSPHATASE 106 U/L (46-116); ALT/SGPT 84 U/L (7.0-40); AST/SGOT 47 U/L (<34); BILIRUBIN,TOTAL 0.7 MG/DL (0.3-1.2); BLOOD UREA NITROGEN 11 MG/DL (9-23); CALCIUM LEVEL 9.4 MG/DL (8.5-10.1); CARBON DIOXIDE LEVEL 31 MMOL/L (20-31); CHLORIDE LEVEL 104 MMOL/L (98-107); CREATININE FOR GFR 1.05 MG/DL (0.70-1.30); GLOMERULAR FILTRATION RATE > 60.0 (>60); GLUCOSE, FASTING 102 MG/DL (60-100); POTASSIUM SERUM 4.8 MMOL/L (3.5-5.1); SODIUM LEVEL 141 MMOL/L (136-145); TOTAL PROTEIN 6.8 G/DL (5.7-8.2)
[2022-08-10 18:59] LABS: THYROID STIMULATING HORMONE 1.435 uIU/ML (0.55-4.78)
== END ==
LOC: M PLALAB 14:37
PROVIDERS: ATTEND Nurse Practitioner Adult Health
DX: E03.9 Hypothyroidism, unspecified (principal); I10 Essential (primary) hypertension

== ENCOUNTER → 2023-02-26 | Outpatient (CLI) | payer MEDICARE, MEDICAID ==
[2023-02-26 13:46] LABS: ALBUMIN 3.7 G/DL (3.2-5.2); ALKALINE PHOSPHATASE 107 U/L (46-116); ALT/SGPT 53 U/L (7.0-40); AST/SGOT 28 U/L (<34); BILIRUBIN,TOTAL 0.7 MG/DL (0.3-1.2); BLOOD UREA NITROGEN 17 MG/DL (9-23); CALCIUM LEVEL 9.3 MG/DL (8.5-10.1); CARBON DIOXIDE LEVEL 27 MMOL/L (20-31); CHLORIDE LEVEL 106 MMOL/L (98-107); CHOLESTEROL LEVEL 192 MG/DL (<200); CHOLESTEROL RISK RATIO 4.86 (<5); CREATININE FOR GFR 0.87 MG/DL (0.70-1.30); GLOMERULAR FILTRATION RATE > 60.0 (>60); GLUCOSE, FASTING 136 MG/DL (60-100); HDL CHOLESTEROL 39.5 MG/DL (>40); LDL CHOLESTEROL 123.5 MG/DL (<100); NON-HDL-C 152.5 MG/DL; POTASSIUM SERUM 4.6 MMOL/L (3.5-5.1); SODIUM LEVEL 143 MMOL/L (136-145); THYROID STIMULATING HORMONE 0.173 uIU/ML (0.55-4.78); TOTAL PROTEIN 6.5 G/DL (5.7-8.2); TRIGLYCERIDES LEVEL 145 MG/DL (<150)
[2023-02-26 13:51] LABS: HEMATOCRIT 42.6 % (42.0-52.0); HEMOGLOBIN 14.4 g/dl (13.5-17.5); MEAN CORPUSCULAR HEMOGLOBIN 30.4 pg (27.0-33.0); MEAN CORPUSCULAR HGB CONC 33.8 g/dl (32.0-36.5); MEAN CORPUSCULAR VOLUME 89.9 fl (80.0-96.0); PLATELET COUNT, AUTOMATED 447 10^3/uL (150-450); RED BLOOD COUNT 4.74 10^6/uL (4.30-6.10)
== END ==
LOC: M PLALAB 08:52
PROVIDERS: ATTEND Nurse Practitioner Adult Health
DX: E03.9 Hypothyroidism, unspecified (principal); I10 Essential (primary) hypertension; Z86.79 Personal history of other diseases of the circulatory system

== ENCOUNTER → 2023-12-25 | Outpatient (CLI) | payer MEDICARE, MEDICAID ==
[2023-12-25 15:34] LABS: HEMOGLOBIN 14.6 g/dl (13.5-17.5); MEAN CORPUSCULAR HEMOGLOBIN 29.4 pg (27.0-33.0); MEAN CORPUSCULAR HGB CONC 32.4 g/dl (32.0-36.5); MEAN CORPUSCULAR VOLUME 90.5 fl (80.0-96.0); PLATELET COUNT, AUTOMATED 442 10^3/uL (150-450); RED BLOOD COUNT 4.97 10^6/uL (4.30-6.10); WHITE BLOOD COUNT 9.6 10^3/uL (4.0-10.0)
[2023-12-25 16:07] LABS: ALBUMIN 3.8 G/DL (3.2-5.2); ALKALINE PHOSPHATASE 141 U/L (46-116); ALT/SGPT 51 U/L (7.0-40); AST/SGOT 26 U/L (<34); BILIRUBIN,TOTAL 0.6 MG/DL (0.3-1.2); BLOOD UREA NITROGEN 16 MG/DL (9-23); CARBON DIOXIDE LEVEL 26 MMOL/L (20-31); CHLORIDE LEVEL 106 MMOL/L (98-107); CHOLESTEROL LEVEL 210 MG/DL (<200); CHOLESTEROL RISK RATIO 5.17 (<5); CREATININE FOR GFR 1.05 MG/DL (0.70-1.30); GLOMERULAR FILTRATION RATE > 60.0 (>60); GLUCOSE, FASTING 154 MG/DL (60-100); HDL CHOLESTEROL 40.6 MG/DL (>40); LDL CHOLESTEROL 128.4 MG/DL (<100); NON-HDL-C 169.4 MG/DL; POTASSIUM SERUM 4.4 MMOL/L (3.5-5.1); SODIUM LEVEL 138 MMOL/L (136-145); TOTAL PROTEIN 6.8 G/DL (5.7-8.2); TRIGLYCERIDES LEVEL 205 MG/DL (<150)
[2023-12-25 16:09] LABS: THYROID STIMULATING HORMONE 0.559 uIU/ML (0.55-4.78)
== END ==
LOC: M PLALAB 13:20
PROVIDERS: ATTEND Nurse Practitioner Adult Health
DX: K76.0 Fatty (change of) liver, not elsewhere classified (principal); I10 Essential (primary) hypertension

== ENCOUNTER → 2024-02-12 | Outpatient (CLI) | payer MEDICARE, MEDICAID ==
[2024-02-12 18:57] LABS: ALKALINE PHOSPHATASE 140 U/L (46-116); ALT/SGPT 51 U/L (7.0-40); AST/SGOT 26 U/L (<34); BILIRUBIN,TOTAL 0.8 MG/DL (0.3-1.2); BLOOD UREA NITROGEN 13 MG/DL (9-23); CALCIUM LEVEL 9.5 MG/DL (8.5-10.1); CARBON DIOXIDE LEVEL 30 MMOL/L (20-31); CHLORIDE LEVEL 104 MMOL/L (98-107); CREATININE FOR GFR 0.95 MG/DL (0.70-1.30); GLOMERULAR FILTRATION RATE > 60.0 (>60); GLUCOSE, FASTING 158 MG/DL (60-100); POTASSIUM SERUM 4.5 MMOL/L (3.5-5.1); SODIUM LEVEL 140 MMOL/L (136-145); TOTAL PROTEIN 7.2 G/DL (5.7-8.2)
[2024-02-12 19:24] LABS: HEMOGLOBIN A1c 7.6 % (4.0-6.0)
== END ==
LOC: M PLALAB 15:32
PROVIDERS: ATTEND Nurse Practitioner Adult Health
DX: R73.9 Hyperglycemia, unspecified (principal)

== ENCOUNTER → 2024-03-19 | Outpatient (CLI) | payer MEDICARE, MEDICAID ==
[~2024-03-19] MED LIST changes: +METF500T13 PO; +METO1TAB32 PO
== END ==
LOC: M RAD 10:24
PROVIDERS: ATTEND Nurse Practitioner Adult Health
DX: R74.8 Abnormal levels of other serum enzymes (principal); K80.20 Calculus of gallbladder without cholecystitis without obstruction

== ENCOUNTER → 2024-04-16 | Outpatient (CLI) | payer MEDICARE, MEDICAID ==
[2024-04-16 18:06] LABS: ALBUMIN 4.1 G/DL (3.2-5.2); ALKALINE PHOSPHATASE 173 U/L (40-129); ALT/SGPT 84 U/L (7.0-40); AST/SGOT 40 U/L (<34); BLOOD UREA NITROGEN 14 MG/DL (9-23); CARBON DIOXIDE LEVEL 26 MMOL/L (20-31); CHLORIDE LEVEL 103 MMOL/L (98-107); CREATININE FOR GFR 0.86 MG/DL (0.70-1.30); GLOMERULAR FILTRATION RATE > 60.0 (>56); GLUCOSE, FASTING 167 MG/DL (60-100); POTASSIUM SERUM 4.7 MMOL/L (3.5-5.1); SODIUM LEVEL 141 MMOL/L (136-145)
[2024-04-16 18:07] LABS: HEMOGLOBIN A1c 7.6 % (4.0-6.0)
[2024-04-16 18:08] LABS: FREE T4 1.41 NG/DL (0.89-1.76); THYROID STIMULATING HORMONE 0.703 uIU/ML (0.55-4.78)
== END ==
LOC: M PLALAB 14:47
PROVIDERS: ATTEND Nurse Practitioner Adult Health
DX: E11.9 Type 2 diabetes mellitus without complications (principal); E03.9 Hypothyroidism, unspecified

== ENCOUNTER → 2024-05-12 | Outpatient (CLI) | payer MEDICARE, MEDICAID | LOC: M LAB 14:11 | PROVIDERS: ATTEND Nurse Practitioner Family | DX: Z12.5 Encounter for screening for malignant neoplasm of prostate (principal) | CPT/HCPCS: 36415; G0103 ==

== ENCOUNTER → 2024-06-12 | Outpatient (CLI) | payer MEDICARE, MEDICAID ==
[~2024-06-12] MED LIST changes: +ALBU8.5H; +FLUT1BLS6; +ISOVUE-370 76% 100ML VIAL As Ordered ONE; +JANU100T PO; +LEVO50TA5 PO; +LISI40TA4 PO
== END ==
LOC: M RAD 16:25
PROVIDERS: ATTEND Specialist
DX: Z85.79 Personal history of other malignant neoplasms of lymphoid, hematopoietic and related tissues (principal); K76.0 Fatty (change of) liver, not elsewhere classified; K57.30 Diverticulosis of large intestine without perforation or abscess without bleeding; Z90.81 Acquired absence of spleen; R91.1 Solitary pulmonary nodule
CPT/HCPCS: 70491; 71260; 74160; Q9967

== ENCOUNTER → 2024-07-22 | Outpatient (REF) | payer MEDICARE, MEDICAID ==
[~2024-07-22] MED LIST changes: -ISOVUE-370 76% 100ML VIAL As Ordered ONE
[2024-07-22 18:25] LABS: HEMOGLOBIN A1c 7.6 % (4.0-6.0)
[2024-07-22 18:35] LABS: ALBUMIN 3.7 G/DL (3.2-5.2); ALKALINE PHOSPHATASE 121 U/L (40-129); ALT/SGPT 51 U/L (7.0-40); AST/SGOT 26 U/L (<34); BILIRUBIN,TOTAL 0.6 MG/DL (0.3-1.2); BLOOD UREA NITROGEN 12 MG/DL (9-23); CALCIUM LEVEL 9.1 MG/DL (8.5-10.1); CARBON DIOXIDE LEVEL 28 MMOL/L (20-31); CHLORIDE LEVEL 105 MMOL/L (98-107); CREATININE FOR GFR 1.05 MG/DL (0.70-1.30); GLOMERULAR FILTRATION RATE > 60.0 (>56); GLUCOSE, FASTING 147 MG/DL (60-100); POTASSIUM SERUM 4.8 MMOL/L (3.5-5.1); SODIUM LEVEL 142 MMOL/L (136-145); TOTAL PROTEIN 7.1 G/DL (5.7-8.2)
[2024-07-22 18:39] LABS: FREE T4 2.28 NG/DL (0.89-1.76); THYROID STIMULATING HORMONE < 0.010 uIU/ML (0.55-4.78)
== END ==
LOC: M PLALAB 17:24
PROVIDERS: ATTEND Nurse Practitioner Adult Health
DX: E11.9 Type 2 diabetes mellitus without complications (principal); E03.9 Hypothyroidism, unspecified

== ENCOUNTER → 2024-08-13 | Outpatient (CLI) | payer MEDICARE, MEDICAID ==
[~2024-08-13] MED LIST changes: -LEVOTAB10; +LEVOTAB10 PO
== END ==
LOC: M RAD 12:45
PROVIDERS: ATTEND Nurse Practitioner Adult Health
DX: I10 Essential (primary) hypertension (principal)

== ENCOUNTER 2024-08-26 11:17 | Day surgery (SDC) | payer MEDICARE, MEDICAID ==
[~2024-08-26] VITALS: Ht 172.7 cm; Wt 116.2 kg
[2024-08-26] MEDS ORDERED: LIDOCAINE 2% 100MG/5ML SDV (FOR ANES.) As Ordered ONE (11:47)
[2024-08-26] MEDS ORDERED: propofoL 200 MG/20 ML VIAL As Ordered ONE (11:47)
[2024-08-26 13:30] VITALS: BP 168/93; O2SAT 97
== END 2024-08-26 13:31 | disposition home or self-care (01) ==
LOC: M OPP 11:17
PROVIDERS: ATTEND Surgery
DX: Z12.11 Encounter for screening for malignant neoplasm of colon (principal); R19.5 Other fecal abnormalities; D12.4 Benign neoplasm of descending colon; D12.2 Benign neoplasm of ascending colon; K64.1 Second degree hemorrhoids; Z88.8 Allergy status to other drugs, medicaments and biological substances; Z79.84 Long term (current) use of oral hypoglycemic drugs; Z79.51 Long term (current) use of inhaled steroids; Z79.899 Other long term (current) drug therapy; J44.9 Chronic obstructive pulmonary disease, unspecified

== ENCOUNTER → 2024-09-04 | Outpatient (CLI) | payer MEDICARE, MEDICAID ==
[2024-09-04 17:32] LABS: HEMOGLOBIN A1c 8.7 % (4.0-6.0)
[2024-09-04 17:52] LABS: ALBUMIN 3.8 G/DL (3.2-5.2); ALKALINE PHOSPHATASE 134 U/L (40-129); ALT/SGPT 56 U/L (7.0-40); AST/SGOT 33 U/L (<34); BILIRUBIN,TOTAL 0.5 MG/DL (0.3-1.2); BLOOD UREA NITROGEN 18 MG/DL (9-23); CARBON DIOXIDE LEVEL 27 MMOL/L (20-31); CHLORIDE LEVEL 105 MMOL/L (98-107); CREATININE FOR GFR 0.93 MG/DL (0.70-1.30); GLOMERULAR FILTRATION RATE > 90.0 (>56); GLUCOSE, FASTING 176 MG/DL (60-100); POTASSIUM SERUM 4.7 MMOL/L (3.5-5.1); SODIUM LEVEL 142 MMOL/L (136-145)
[2024-09-04 17:57] LABS: FREE T4 2.09 NG/DL (0.89-1.76)
[2024-09-04 17:58] LABS: THYROID STIMULATING HORMONE < 0.010 uIU/ML (0.55-4.78)
== END ==
LOC: M PLALAB 15:22
PROVIDERS: ATTEND Nurse Practitioner Adult Health
DX: E11.9 Type 2 diabetes mellitus without complications (principal); E03.9 Hypothyroidism, unspecified

== ENCOUNTER → 2025-01-12 | Outpatient (CLI) | payer MEDICARE, MEDICAID ==
[~2025-01-12] MED LIST changes: -IBUP-1022 PO; +IBUP600T42 PO; +LISI40TA10 PO; -LISI40TA4 PO
[2025-01-12 16:08] LABS: ESTIMATED AVERAGE GLUCOSE 183.0 MG/DL (60-110)
[2025-01-12 16:17] LABS: ALT/SGPT 47.0 U/L (7.0-40); AST/SGOT 26.0 U/L (<34); CALCIUM LEVEL 8.9 MG/DL (8.5-10.1); CARBON DIOXIDE LEVEL 26.0 MMOL/L (20-31); CHLORIDE LEVEL 105.0 MMOL/L (98-107); CHOLESTEROL LEVEL 202.0 MG/DL (<200); CHOLESTEROL RISK RATIO 5.23 (<5); CREATININE FOR GFR 1.04 MG/DL (0.70-1.30); GLOMERULAR FILTRATION RATE 87.5 (>56); LDL CHOLESTEROL 127.4 MG/DL (<100); NON-HDL-C 163.4 MG/DL; POTASSIUM SERUM 4.7 MMOL/L (3.5-5.1); SODIUM LEVEL 140.0 MMOL/L (136-145); TRIGLYCERIDES LEVEL 180.0 MG/DL (<150)
[2025-01-12 16:19] LABS: FREE T4 2.06 NG/DL (0.89-1.76)
== END ==
LOC: M PLALAB 12:36
PROVIDERS: ATTEND Nurse Practitioner Adult Health
DX: E11.9 Type 2 diabetes mellitus without complications (principal); E03.9 Hypothyroidism, unspecified